=== PATIENT | female | born 1930 | race Caucasian/White ===

== ENCOUNTER 2020-10-15 11:42 | Inpatient (IN) ==
[2020-10-15] MEDS ORDERED: Albuterol 2.5 MG/3 ML NEBULIZER IH PRN (14:55)
[2020-10-15] MEDS ORDERED: Nitroglycerin 0.4 MG TAB.SUBL SL PRN (14:55)
[2020-10-15] MEDS ORDERED: Nystatin SUSP 5 ML UD.LIQ PO PRN (14:55)
[2020-10-15] MEDS: Temazepam 15 MG CAPSULE PO SCH (20:52)
[2020-10-15] MEDS: Sennosides/Docusate Sodium TABLET PO SCH (20:52)
[2020-10-15] MEDS: Gabapentin 300 MG CAPSULE PO SCH (20:53)
[2020-10-15] MEDS: Budesonide/Formoterol 80/4.5 1 PUFF INH IH SCH (21:01)
[2020-10-16 07:51] LABS: Basophils % 0.6 %; Eosinophils # 0.2 K/mcL (0.0-0.6); Eosinophils % 3.6 %; Hematocrit 35.3 % (35.3-44.9); Hemoglobin 10.5 g/dL (11.5-15.4); Immature Granulocytes % 0.2 % (0-4); Lymphocytes # 1.7 K/mcL (0.6-4.6); Lymphocytes % 33.9 %; Mean Corpuscular HGB Conc 29.7 g/dL (31.6-35.5); Mean Corpuscular Hemoglobin 25.6 pg (28.0-33.3); Mean Corpuscular Volume 86.1 fL (83.0-100.0); Mean Platelet Volume 10.1 fL (9.4-12.4); Monocytes # 0.4 K/mcL (0.0-1.3); Monocytes % 7.3 %; Neutrophils # 2.7 K/mcL (1.6-8.9); Platelet Count 201 K/mcL (140-400); Red Cell Distribution Width 17.6 % (11.5-14.5); Segmented Neutrophils % 54.4 %
[2020-10-16] MEDS ORDERED: Sennosides/Docusate Sodium TABLET PO SCH (09:00)
[2020-10-16] MEDS: Tiotropium 10 INH DOSE IH SCH (09:44)
[2020-10-16] MEDS: Budesonide/Formoterol 80/4.5 1 PUFF INH IH SCH ×2 (09:44→21:25)
[2020-10-16 09:51] LABS: Albumin 3.3 g/dL (3.5-5.7); Albumin/Globulin Ratio 1.2 (1.1-2.2); Bilirubin,Total 0.5 mg/dL (0.3-1.0); Calcium 9.3 mg/dL (8.6-10.3); Globulin 2.8 g/dL (2.4-3.5); Potassium 4.2 mEq/L (3.5-5.1); Total Protein 6.1 g/dL (6.4-8.9)
[2020-10-16] MEDS: polyethylene glycoL 3350 17 GM POWD.PACK PO SCH (10:07)
[2020-10-16] MEDS: Sennosides/Docusate Sodium TABLET PO SCH ×2 (10:09→22:37)
[2020-10-16] MEDS: Aspirin Enteric Coated 81 MG Tablet PO SCH (10:09)
[2020-10-16] MEDS: Furosemide 40 MG TABLET PO SCH (10:09)
[2020-10-16] MEDS: Gabapentin 300 MG CAPSULE PO SCH ×3 (10:09→22:38)
[2020-10-16] MEDS: Fluticasone Propionate Nasal 50 MCG/SPRAY BOTTLE NS SCH (10:19)
[2020-10-16 10:28] LABS: Activated Partial Thrombo Time 32.2 Seconds (26.0-36.0); INR 1.1; Prothrombin Time 12.6 Seconds (9.4-12.1)
[2020-10-16] MEDS: Temazepam 15 MG CAPSULE PO SCH (22:37)
[2020-10-17] MEDS: polyethylene glycoL 3350 17 GM POWD.PACK PO SCH (08:37)
[2020-10-17] MEDS: Aspirin Enteric Coated 81 MG Tablet PO SCH (08:38)
[2020-10-17] MEDS: Sennosides/Docusate Sodium TABLET PO SCH (08:38)
[2020-10-17] MEDS: Gabapentin 300 MG CAPSULE PO SCH ×3 (08:38→20:17)
[2020-10-17] MEDS: Furosemide 40 MG TABLET PO SCH (08:39)
[2020-10-17] MEDS: Fluticasone Propionate Nasal 50 MCG/SPRAY BOTTLE NS SCH (08:42)
[2020-10-17] MEDS: Tiotropium 10 INH DOSE IH SCH (09:51)
[2020-10-17] MEDS: Budesonide/Formoterol 80/4.5 1 PUFF INH IH SCH ×2 (09:51→22:30)
[2020-10-17] MEDS: Temazepam 15 MG CAPSULE PO SCH (20:18)
[2020-10-18] MEDS: Furosemide 40 MG TABLET PO SCH (08:38)
[2020-10-18] MEDS: Gabapentin 300 MG CAPSULE PO SCH ×3 (08:38→21:46)
[2020-10-18] MEDS: Cholecalciferol (D-3) 1,000 UNIT (25MCG) TABLET PO SCH (08:38)
[2020-10-18] MEDS: Fluticasone Propionate Nasal 50 MCG/SPRAY BOTTLE NS SCH (08:38)
[2020-10-18] MEDS: Aspirin Enteric Coated 81 MG Tablet PO SCH (08:38)
[2020-10-18] MEDS: Tiotropium 10 INH DOSE IH SCH (08:54)
[2020-10-18] MEDS: Budesonide/Formoterol 80/4.5 1 PUFF INH IH SCH ×2 (08:54→22:24)
[2020-10-18] MEDS: Temazepam 15 MG CAPSULE PO SCH (21:46)
[2020-10-19 07:06] LABS: Basophils % 0.7 %; Eosinophils # 0.2 K/mcL (0.0-0.6); Eosinophils % 4.2 %; Hematocrit 33.8 % (35.3-44.9); Hemoglobin 10.1 g/dL (11.5-15.4); Immature Granulocytes % 0.4 % (0-4); Lymphocytes # 1.8 K/mcL (0.6-4.6); Lymphocytes % 33.1 %; Mean Corpuscular HGB Conc 29.9 g/dL (31.6-35.5); Mean Corpuscular Hemoglobin 25.8 pg (28.0-33.3); Mean Corpuscular Volume 86.2 fL (83.0-100.0); Monocytes # 0.4 K/mcL (0.0-1.3); Monocytes % 8.1 %; Neutrophils # 2.9 K/mcL (1.6-8.9); Platelet Count 179 K/mcL (140-400); Red Blood Count 3.92 M/mcL (3.82-4.97); Red Cell Distribution Width 18.3 % (11.5-14.5); Segmented Neutrophils % 53.5 %; White Blood Count 5.4 K/mcL (4.3-11.1)
[2020-10-19 07:23] LABS: Potassium 3.7 mEq/L (3.5-5.1)
[2020-10-19] MEDS: Furosemide 40 MG TABLET PO SCH (09:04)
[2020-10-19] MEDS: Gabapentin 300 MG CAPSULE PO SCH ×3 (09:04→20:36)
[2020-10-19] MEDS: Cholecalciferol (D-3) 1,000 UNIT (25MCG) TABLET PO SCH (09:04)
[2020-10-19] MEDS: Fluticasone Propionate Nasal 50 MCG/SPRAY BOTTLE NS SCH (09:04)
[2020-10-19] MEDS: Aspirin Enteric Coated 81 MG Tablet PO SCH (09:04)
[2020-10-19] MEDS: Budesonide/Formoterol 80/4.5 1 PUFF INH IH SCH ×2 (10:19→23:03)
[2020-10-19] MEDS: Tiotropium 10 INH DOSE IH SCH (10:28)
[2020-10-19] MEDS ORDERED: Acetaminophen 325 MG TABLET PO PRN (17:21)
[2020-10-19] MEDS: Temazepam 15 MG CAPSULE PO SCH (20:37)
[2020-10-20] MEDS: Cholecalciferol (D-3) 1,000 UNIT (25MCG) TABLET PO SCH (08:24)
[2020-10-20] MEDS: Gabapentin 300 MG CAPSULE PO SCH ×3 (08:24→20:47)
[2020-10-20] MEDS: Furosemide 40 MG TABLET PO SCH (08:24)
[2020-10-20] MEDS: Aspirin Enteric Coated 81 MG Tablet PO SCH (08:24)
[2020-10-20] MEDS: Fluticasone Propionate Nasal 50 MCG/SPRAY BOTTLE NS SCH (08:26)
[2020-10-20] MEDS: Budesonide/Formoterol 80/4.5 1 PUFF INH IH SCH ×2 (10:01→22:10)
[2020-10-20] MEDS: Tiotropium 10 INH DOSE IH SCH (10:02)
[2020-10-20] MEDS: Temazepam 15 MG CAPSULE PO SCH (20:48)
[2020-10-21] MEDS: Fluticasone Propionate Nasal 50 MCG/SPRAY BOTTLE NS SCH (08:30)
[2020-10-21] MEDS: Furosemide 40 MG TABLET PO SCH (08:31)
[2020-10-21] MEDS: Cholecalciferol (D-3) 1,000 UNIT (25MCG) TABLET PO SCH (08:31)
[2020-10-21] MEDS: Gabapentin 300 MG CAPSULE PO SCH ×3 (08:31→21:08)
[2020-10-21] MEDS: Aspirin Enteric Coated 81 MG Tablet PO SCH (08:31)
[2020-10-21] MEDS: Budesonide/Formoterol 80/4.5 1 PUFF INH IH SCH ×2 (08:42→21:11)
[2020-10-21] MEDS: Tiotropium 10 INH DOSE IH SCH (08:43)
[2020-10-21] MEDS: Temazepam 15 MG CAPSULE PO SCH (21:08)
[2020-10-22 06:44] VITALS: BP 122/63
[2020-10-22] MEDS: Furosemide 40 MG TABLET PO SCH (08:18)
[2020-10-22] MEDS: Cholecalciferol (D-3) 1,000 UNIT (25MCG) TABLET PO SCH (08:18)
[2020-10-22] MEDS: Gabapentin 300 MG CAPSULE PO SCH ×2 (08:19→11:52)
[2020-10-22] MEDS: Aspirin Enteric Coated 81 MG Tablet PO SCH (08:19)
[2020-10-22] MEDS: Fluticasone Propionate Nasal 50 MCG/SPRAY BOTTLE NS SCH (08:24)
[2020-10-22] MEDS: Budesonide/Formoterol 80/4.5 1 PUFF INH IH SCH (09:08)
[2020-10-22] MEDS: Tiotropium 10 INH DOSE IH SCH (09:08)
== END 2020-10-22 14:10 | disposition home health service (06) | DRG 945 ==
LOC: INPPIK 13:16
PROVIDERS: ADMIT Family Medicine; ATTEND Family Medicine